=== PATIENT | female | born 1955 | race Caucasian/White ===

== ENCOUNTER 2023-05-04 05:28 | Day surgery (SDC) | payer OTHER ==
[2023-04-29 15:06] VITALS: BMI 30.2
[2023-05-04 10:20] VITALS: TEMP 98
[2023-05-04 10:48] VITALS: PULSE 63
[2023-05-04 11:14] VITALS: BP 146/85; RESP 15
== END 2023-05-04 11:10 | disposition home or self-care (01) ==
LOC: JASU-ENDO 05:28
PROVIDERS: ATTEND Internal Medicine Gastroenterology
PROC: 0DBL8ZX Excision of Transverse Colon, Via Natural or Artificial Opening Endoscopic, Diagnostic (ICD-10-PCS; principal; 2023-05-04 10:00)
DX: Z12.11 Encounter for screening for malignant neoplasm of colon (principal); D12.3 Benign neoplasm of transverse colon; K62.1 Rectal polyp; K64.8 Other hemorrhoids; Z86.010 Personal history of colon polyps; Z80.0 Family history of malignant neoplasm of digestive organs
CPT/HCPCS: 88305-TC